=== PATIENT | male | born 1985 | race Caucasian/White ===

== ENCOUNTER 2017-09-23 01:26 | Inpatient (IN) | payer OTHER ==
--- NOTE | 2017-09-23 01:51 | ED ---
General Adult HPI - General Chief complaint: Psychiatric Symptoms Stated complaint: mental health Time Seen by Provider: 09/23/17 01:49 Source: patient, RN notes reviewed, old records reviewed Mode of arrival: ambulatory Limitations: no limitations - History of Present Illness Initial comments: This is a 32-year-old male to the ER for evaluation of suicidal thoughts. Patient states he has history of psychiatric illness but no prior evaluation. Denies drugs or current alcohol drinking. Patient states he does drink occasional. Patient states he has been having significant thoughts of suicide for time now. On and off. Patient states symptoms are increasing is very suicidal and depressed today - Related Data Home Medications Medication Instructions Recorded Confirmed No Known Home Medications [No 09/23/17 09/23/17 Known Home Medications] Allergies Allergy/AdvReac Type Severity Reaction Status Date / Time No Known Allergies Allergy Verified 09/23/17 01:40 Review of Systems ROS Statement: Those systems with pertinent positive or pertinent negative responses have been documented in the HPI. ROS Other: All systems not noted in ROS Statement are negative. Past Medical History Past Medical History: No Reported History History of Any Multi-Drug Resistant Organisms: None Reported Past Surgical History: No Surgical Hx Reported Past Psychological History: Depression Smoking Status: Current every day smoker Past Alcohol Use History: Daily Past Drug Use History: Marijuana General Exam Limitations: no limitations General appearance: alert, in no apparent distress Head exam: Present: atraumatic, normocephalic, normal inspection Eye exam: Present: normal appearance, PERRL, EOMI. Absent: scleral icterus, conjunctival injection, periorbital swelling ENT exam: Present: normal exam, mucous membranes moist Neck exam: Present: normal inspection. Absent: tenderness, meningismus, lymphadenopathy Respiratory exam: Present: normal lung sounds bilaterally. Absent: respiratory distress, wheezes, rales, rhonchi, stridor Cardiovascular Exam: Present: regular rate, normal rhythm, normal heart sounds. Absent: systolic murmur, diastolic murmur, rubs, gallop, clicks GI/Abdominal exam: Present: soft, normal bowel sounds. Absent: distended, tenderness, guarding, rebound, rigid Extremities exam: Present: normal inspection, full ROM, normal capillary refill. Absent: tenderness, pedal edema, joint swelling, calf tenderness Back exam: Present: normal inspection Neurological exam: Present: alert, oriented X3, CN II-XII intact Psychiatric exam: Present: normal affect, normal mood Skin exam: Present: warm, dry, intact, normal color. Absent: rash Course Vital Signs 09/23/17 01:34 Temperature 98.5 F Pulse Rate 71 Respiratory 18 Rate Blood Pressure 136/94 O2 Sat by Pulse 98 Oximetry - Reevaluation(s) Reevaluation #1: 09/23/17 01:51 Medical clear for psychiatric evaluation Medical Decision Making - Medical Decision Making 29 female the ER for evaluation. This patient presents for evaluation regards to psychiatric illness, patient to be admitted for psychiatric evaluation and treatment Disposition Clinical Impression: Depression, Suicidal ideation Disposition: TRANSFER TO PSYCH HOSP/UNIT Condition: Good Referrals: None,Stated [Primary Care Provider] - 1-2 days
[2017-09-23] MEDS ORDERED: MAG HYDROX/AL HYDROX/SIMETH 30 ML CUP PO PRN (04:46)
[2017-09-23] MEDS ORDERED: ACETAMINOPHEN TAB 325 MG TAB PO PRN (04:46)
[2017-09-23] MEDS ORDERED: MAGNESIUM HYDROXIDE 2,400 MG/10 ML CUP PO PRN (04:46)
[2017-09-23 05:17] LABS: Appearance,Urine Clear (Clear); Bilirubin,Urine Negative (Negative); Blood,Urine Negative (Negative); Color,Urine Yellow; Glucose,Urine (UA) Negative (Negative); Ketones,Urine Negative (Negative); Leukocyte Esterase,Urine Negative (Negative); Nitrite,Urine Negative (Negative); Protein,Urine Negative (Negative); Urobilinogen,Urine <2.0 mg/dL (<2.0)
[2017-09-23 05:57] VITALS: RESP 16
--- NOTE | 2017-09-23 06:27 | P.MDCNMH ---
History of Present Illness H&P Date: 09/23/17 Chief Complaint: Suicidal ideations 32-year-old male to the ER for evaluation of suicidal thoughts. He feels that he needed a psychiatrist evaluation that is ''long overdue''. Patient states he has history of depression and in the past used to have periods of elation with that but lately he only has been having worsening depression. He was not evaluated by a physician for this in the past. He denied having any hallucinations or delusions. No plans for suicide. No attempts to commit suicide. He has been smoking a lot of marijuana and drinking a lot of alcohol lately over the last month. He has been drinking about 3-4 beers a day and stated that he has not been feeling the alcohol. He has been having a lot of stress in his life from his relationship with a significant other. No recent illness, fevers chills, pain or shortness of breath. Review of Systems 12 point review of system was performed, negative except for HPI Past Medical History Past Medical History: No Reported History History of Any Multi-Drug Resistant Organisms: None Reported Past Surgical History: No Surgical Hx Reported Past Psychological History: Depression Smoking Status: Current every day smoker Past Alcohol Use History: Daily Past Drug Use History: Marijuana - Past Family History Mother Additional Family Medical History / Comment(s): Bipolar disorder runs in the family. Medications and Allergies Home Medications Medication Instructions Recorded Confirmed Type No Known Home Medications [No 09/23/17 09/23/17 History Known Home Medications] Allergies Allergy/AdvReac Type Severity Reaction Status Date / Time No Known Allergies Allergy Verified 09/23/17 01:40 Physical Exam Vitals: Vital Signs Temp Pulse Pulse Resp BP BP Pulse Ox 09/23/17 05:52 98.5 F 78 16 126/76 95 09/23/17 01:34 98.5 F 71 18 136/94 98 Intake and Output 09/22/17 09/22/17 09/23/17 14:59 22:59 06:59 Other: Weight 91.8 kg Patient Weight 09/23/17 06:59 Weight 91.8 kg Constitutional: No acute distress, conversant, pleasant Eyes:Anicteric sclerae, moist conjunctiva, no lid-lag, PERRLA, ENMT: Oropharynx clear, no erythema, exudates Neck: Supple, FROM, no masses, or JVD, No carotid bruits, No thyromegaly Lungs: Clear to auscultation, Clear to percussion, Normal respiratory effort, no accessory muscle use Cardiovascular: Heart regular in rate and rhythm, No murmurs, gallops, or rubs, No peripheral edema Abdominal: Soft, Nontender, no guarding, rebound or rigidity, Normoactive bowel sounds, No hepatomegaly, No splenomegaly, No palpable mass Skin: Normal temperature, tone, texture, turgor, no induration, No subcutaneous nodules, No rash, lesions, No ulcers Extremities: No digital cyanosis, No clubbing, Pedal pulses intact and symmetrical, Radial pulses intact and symmetrical, No calf tenderness Psychiatric: Alert and oriented to person, place and time, appropriate affect, intact judgement Neuro: Muscles Strength 5/5 in all 4 extremities, Sensation to light touch grossly present throughout, Cranial nerves II-XII grossly intact, no focal sensory deficits Cranial Nerve Examination - Cranial Nerves Cranial Nerve II- Optic: Intact Cranial Nerve III- Oculomotor: Intact Cranial Nerve IV- Trochlear: Intact Cranial Nerve V- Trigeminal: Intact Cranial Nerve - Abducens: Intact Cranial Nerve VII- Facial: Intact Cranial Nerve VIII- Auditory: Intact Cranial Nerve IX- Glossopharyngeal: Intact Cranial Nerve X- Vagus: Intact Cranial Nerve XI- Accessory: Intact Cranial Nerve XII- Hypoglossal: Intact Assessment and Plan Plan: #1 Depression with suicidal ideations: Management per psychiatry Check CBC, CMP, TSH, hemoglobin A1c #2. Polysubstance abuse including smoking cigarettes and marijuana, drinking: Advised to quit Offered nicotine patches or drugs to help with nicotine craving but he refused and stated that he can do it alone
[2017-09-23 07:08] LABS: Amphetamine Screen,Urine Not Detected (NotDetected); Barbiturate Screen,Urine Not Detected (NotDetected); Benzodiazepines Screen,Urine Not Detected (NotDetected); Cocaine Screen,Urine Detected (NotDetected); Methadone Screen, Urine Not Detected (NotDetected); Opiate Screen,Urine Not Detected (NotDetected); Oxycodone Screen, Urine Not Detected (NotDetected); Phencyclidine Screen,Urine Not Detected (NotDetected); Tricyclic Antidepressant,Urine Not Detected (NotDetected); Urn Cannabinoid Scrn Detected (NotDetected)
--- NOTE | 2017-09-23 09:52 | P.HP ---
Psychiatric H&P - . H&P Date: 09/23/17 History & Physical: Allergies Allergy/AdvReac Type Severity Reaction Status Date / Time No Known Allergies Allergy Verified 09/23/17 01:40 Vital Signs Temp 98.5 F 09/23/17 05:52 Pulse 78 09/23/17 05:52 Resp 16 09/23/17 05:52 BP 126/76 09/23/17 05:52 Pulse Ox 95 09/23/17 05:52 Intake & Output 09/22/17 09/23/17 09/23/17 18:59 06:59 18:59 Weight 91.8 kg Laboratory Last Values Urine Color Yellow 09/23/17 04:30 Urine Appearance Clear (Clear) 09/23/17 04:30 Urine pH 6.0 (5.0-8.0) 09/23/17 04:30 Ur Specific Merom 1.020 (1.001-1.035) 09/23/17 04:30 Urine Protein Negative (Negative) 09/23/17 04:30 Urine Glucose (UA) Negative (Negative) 09/23/17 04:30 Urine Ketones Negative (Negative) 09/23/17 04:30 Urine Blood Negative (Negative) 09/23/17 04:30 Urine Nitrite Negative (Negative) 09/23/17 04:30 Urine Bilirubin Negative (Negative) 09/23/17 04:30 Urine Urobilinogen <2.0 mg/dL (<2.0) 09/23/17 04:30 Ur Leukocyte Esterase Negative (Negative) 09/23/17 04:30 Urine Opiates Screen Not Detected (NotDetected) 09/23/17 04:30 Ur Oxycodone Screen Not Detected (NotDetected) 09/23/17 04:30 Urine Methadone Screen Not Detected (NotDetected) 09/23/17 04:30 Ur Propoxyphene Screen Not Detected (NotDetected) 09/23/17 04:30 Ur Barbiturates Screen Not Detected (NotDetected) 09/23/17 04:30 U Tricyclic Antidepress Not Detected (NotDetected) 09/23/17 04:30 Ur Phencyclidine Scrn Not Detected (NotDetected) 09/23/17 04:30 Ur Amphetamines Screen Not Detected (NotDetected) 09/23/17 04:30 U Methamphetamines Scrn Not Detected (NotDetected) 09/23/17 04:30 U Benzodiazepines Scrn Not Detected (NotDetected) 09/23/17 04:30 Urine Cocaine Screen Detected (NotDetected) H 09/23/17 04:30 U Marijuana (THC) Screen Detected (NotDetected) H 09/23/17 04:30 09/23/17 09:37 Identification: Júnior Carias is a 32 years old single white male living in [facility] he was admitted to [facility] on 2017 under a petition stating that he is depressed and suicidal. History of present illness: Patient said he has been depressed all his life and it comes and goes. This time is started about first of the year since he was laid off on 06/14/2017. He also said he has been having suicidal thoughts for the last 2 days since his girlfriend apparently kicked him out. He said he was leaving the house staying with somebody for some time and so his girlfriend got mad and kicked him out. Apparently they reconciled and they both agreed that he should come to the hospital for examination and treatment. He said his depression gets worse lasting from weeks to months. During his "depression" he sleeps a lot. He does not report other symptoms of depression. He said his mood changes and sometimes he feels happy and hyper lasting for hours which happens spontaneously. He denies hallucinations and delusional thinking. Previous psychiatric history/drug and alcohol abuse: He was never in a psychiatric hospital and does not have any psychiatric treatment. He said he has been drinking alcohol since he was a teenager he drinks every day up to about 3 beers. But there are times when he drinks more than 10 beers a day he had blackouts. He did not have any withdrawal symptoms, DUI or PI. He also has been smoking pot since he was a teenager. He said he smokes a joint a day. He insisted that he does not abuse any other drugs. When he was asked about his drug screening being positive for cocaine, he admitted that he has been smoking cocaine recently. Previous medical history: He is not ALLERGIC to any medication. He gets at least 1 or 2 episodes of headaches which he thinks could be migraine or tension headaches. He did not have any surgery. He denies any other physical problems. Social history: He had graduated from high school and got 10 credits in college. 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 He said he had some learning problems but he did not have to repeat any grades or classes. He did not like to follow the rules and got into trouble with his father because of this. His parents were when he was 12 years old. Then he stated either with his father or his mother. He was not abused. He has been living with his girlfriend for the last 15 years and has 3 children. As noted earlier he was laid off from [employer] on 06/14/2017 and he will be recalled next month. Apparently he gets laid off every winter and this is nothing new. He was not in the service. He is [employer] by [employer] and does not go to restorationist. He is heterosexual. He denies any pending legal issues. He does not have any health insurance. Family history: He thinks his father may have bipolar disorder. Mental status examination: This is a white ambulatory male with adequate hygiene. He is polite and cooperative. He does not show any psychomotor agitation or retardation. His speech is spontaneous relevant and goal- directed. His mood is dull and affect is somewhat constricted in range. He denies current suicidal and homicidal ideas. He denies hallucinations and delusional thinking. He is well oriented with good memory. He is able to recall 3 out of 3 items after 5 minutes and name the last 4 presidents correctly. He is able to spell house both forwards and backwards correctly. He is able to say 8+7 is 15 and 87 is 56 without any difficulty. His insight is fair and judgment is rather impaired as evidenced by his recent behavior of leaving the house, staying with somebody, abusing pot cocaine etc. 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 Treatment plan: He already had his physical examination. He will have psychosocial evaluation. He will receive milieu therapy group therapy individual therapy occupational therapy recreational therapy and medication education. Since he is not considered to be a suicide risk at this time he will not receive suicide supervision. His condition was discussed with him and it was agreed for him to try Depakote 1500 mg a day for possible mood stabilization and headache prevention. Adjust the dose as necessary. Discharge with outpatient follow-up. Treatment goals: He will continue to be free of suicide thoughts. He will learn better coping skills. His mood will be stable. Estimated length of stay: 3-5 days.
[2017-09-23] MEDS: DIVALPROEX ER 500 MG TAB.ER.24H PO SCH (10:36)
[2017-09-23 10:55] LABS: Basophils % (A) 1 %; Eosinophils # (A) 0.1 k/uL (0-0.7); Eosinophils % (A) 1 %; HCT 47.7 % (39.0-53.0); HGB 16.6 gm/dL (13.0-17.5); Lymphocytes % (A) 22 %; MCHC 34.7 g/dL (31.0-37.0); MCV 89.2 fL (80.0-100.0); Monocytes # (A) 0.5 k/uL (0-1.0); Monocytes % (A) 5 %; Neutrophils # (A) 6.5 k/uL (1.3-7.7); Neutrophils % (A) 70 %; Platelet Count 215 k/uL (150-450); RBC 5.35 m/uL (4.30-5.90); RDW 12.8 % (11.5-15.5); WBC 9.3 k/uL (3.8-10.6)
[2017-09-23 11:28] LABS: ALT 22 U/L (21-72); AST 15 U/L (17-59); Albumin 3.9 g/dL (3.5-5.0); Alkaline Phosphatase 58 U/L (38-126); Anion Gap 11 mmol/L; Blood Urea Nitrogen 13 mg/dL (9-20); Calcium 9.5 mg/dL (8.4-10.2); Carbon Dioxide 26 mmol/L (22-30); Chloride 107 mmol/L (98-107); Glucose 94 mg/dL (74-99); Potassium 4.3 mmol/L (3.5-5.1); Sodium 144 mmol/L (137-145); Total Bilirubin 0.2 mg/dL (0.2-1.3); Total Protein 6.9 g/dL (6.3-8.2)
[2017-09-24] MEDS: DIVALPROEX ER 500 MG TAB.ER.24H PO SCH (08:19)
--- NOTE | 2017-09-24 12:02 | P.PN ---
Progress Note - Text Progress Note Date: 09/24/17 Patient was seen for a follow-up examination. He is polite and cooperative. He said he took his Depakote yesterday and today and he thinks his mood is more stable and better since he went on Depakote. He said he went to his groups this morning. He was encouraged to go to the groups. Patient is polite and cooperative. His still looks a little dysphoric. He does not show any psychomotor agitation or retardation. His speech is rather short soft and goal-directed. His affect is fairly appropriate to thought content. He continues to deny suicidal, homicidal thoughts, hallucinations and delusional thinking. He is well oriented with adequate memory concentration etc. Plan: Continue Depakote, groups and other activities.
[2017-09-25 06:50] VITALS: BP 89/61; PULSE 72; TEMP 98.4
[2017-09-25] MEDS: DIVALPROEX ER 500 MG TAB.ER.24H PO SCH (08:17)
--- NOTE | 2017-09-25 10:54 | P.DS ---
Providers Date of admission: 09/23/17 04:26 Expected date of discharge: 09/25/17 Attending physician: Omar Donovan Consults: 09/23/17 04:46 Consult Physician Routine Consulting Provider: [facility] [employer] Consult Reason/Comments: H & P medical management Do you want consulting provider notified?: Yes, Notify in am Primary care physician: Stated None Hospital Course: Patient had his physical examination psychiatric evaluation and psychosocial evaluation. After psychiatric examination he was started on Depakote 1500 mg a day. He also receive milieu therapy group therapy individual therapy occupational therapy recreational therapy and medication education. He participated in his therapy sessions interacted with staff and peers and did not have any untoward incident. He did not have any adverse effects from medication. He did not have any headaches since he went on Depakote. His mood has been stable and continues to deny suicide thoughts. In view of all these it was agreed to discharge him. Condition on discharge: This is a white ambulatory male with good hygiene he is polite cheerful and cooperative. He does not show any psychomotor agitation or retardation. His speech is spontaneous relevant and goal-directed. His mood is euthymic and affect is appropriate. He continues to deny suicide and homicide thoughts. He also denies hallucinations and delusional thinking. His insight and judgment have improved. He is well oriented with good memory concentration general fund of knowledge etc. Diagnosis on discharge: Unspecified bipolar and related disorder F 31.9 Alcohol use disorder severe F 10.20 Cannabis use disorder moderate F 12.20 Cocaine use disorder mild F 14.10 NKDA Chronic migraine versus tension headaches. 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 He agreed with all these recommendations. Patient Condition at Discharge: Good Plan - Discharge Summary Discharge Rx Participant: Yes New Discharge Prescriptions: New Divalproex ER [Depakote ER] 1,500 mg PO DAILY 30 Days #30 tab.er.24h Discharge Medication List Divalproex ER [Depakote ER] 1,500 mg PO DAILY 30 Days #30 tab.er.24h 09/25/17 [ Rx] Follow up Appointment(s)/Referral(s): [facility] - [facility] - 10/01/17 10:30 am (10/01/17 at 1030 with Niurka Gibbs ) Patient Instructions/Handouts: Depression (GEN), Suicide Prevention for Adults (GEN) Activity/Diet/Wound Care/Special Instructions: Activity and diet as tolerated. Avoid the use of street drugs and alcohol. Take all medications as prescribed. When you are in need of refills on your medications please contact your medical provider and/or outpatient psychiatrist to have this done. Please go to scheduled outpatient appointment for aftercare treatment. If symptoms return or become worse call the crisis line at [phone] and/or go to the nearest emergency room for an evaluation. Depakote level, AST, AST, CBC with differential count on 09/27/2017 in an empty stomach. Discharge Disposition: HOME SELF-CARE
== END 2017-09-25 13:44 | disposition home or self-care (01) | DRG 885 ==
LOC: EC 01:26 → 3MHU 04:26
PROVIDERS: ADMIT Psychiatry & Neurology Psychiatry; ATTEND Psychiatry & Neurology Psychiatry
DX: F31.9 Bipolar disorder, unspecified (principal); R45.851 Suicidal ideations; F10.20 Alcohol dependence, uncomplicated; F12.20 Cannabis dependence, uncomplicated; F14.10 Cocaine abuse, uncomplicated; F43.25 Adjustment disorder with mixed disturbance of emotions and conduct; Z87.891 Personal history of nicotine dependence; Z71.41 Alcohol abuse counseling and surveillance of alcoholic; Z71.51 Drug abuse counseling and surveillance of drug abuser
CPT/HCPCS: 80053; 80306; 81003; 82075; 84443; 85025; 99285

== ENCOUNTER → 2017-09-27 | Outpatient (CLI) | payer SELFPAY ==
[2017-09-27 15:40] LABS: Basophils % (A) 1 %; Eosinophils # (A) 0.1 k/uL (0-0.7); Eosinophils % (A) 1 %; HCT 47.9 % (39.0-53.0); HGB 16.5 gm/dL (13.0-17.5); Lymphocytes # (A) 2.2 k/uL (1.0-4.8); Lymphocytes % (A) 24 %; MCHC 34.5 g/dL (31.0-37.0); Mean Platelet Volume 6.9; Monocytes # (A) 0.5 k/uL (0-1.0); Monocytes % (A) 5 %; Neutrophils # (A) 6.3 k/uL (1.3-7.7); Neutrophils % (A) 68 %; Platelet Count 239 k/uL (150-450); RBC 5.33 m/uL (4.30-5.90); RDW 12.8 % (11.5-15.5); WBC 9.2 k/uL (3.8-10.6)
== END | disposition home or self-care (01) ==
LOC: LABWHC1 15:23
PROVIDERS: ATTEND Psychiatry & Neurology Psychiatry
DX: F31.9 Bipolar disorder, unspecified (principal)
CPT/HCPCS: 36415; 80164; 84450; 84460; 85025

== ENCOUNTER 2019-04-26 21:41 | Emergency (ER) | payer MEDICAID, OTHER ==
[2019-04-26 22:06] VITALS: RESP 18
[2019-04-26] MEDS ORDERED: FAMOTIDINE 20 MG TAB PO STA (22:45)
[2019-04-26] MEDS ORDERED: predniSONE 50 MG TAB PO STA (22:45)
[2019-04-26] MEDS ORDERED: diphenhydrAMINE 50 MG CAP PO STA (22:45)
[2019-04-26] MEDS ORDERED: MAG HYDROX/AL HYDROX/SIMETH 30 ML, HYOSCYAMINE ELIXIR 10 ML, CIMETIDINE HCL 300 MG, LID... PO STA ×4 (23:16)
--- NOTE | 2019-04-26 23:18 | ED ---
General Adult HPI - General Chief complaint: Skin/Abscess/Foreign Body Stated complaint: Rash Time Seen by Provider: 04/26/19 22:02 Source: patient, RN notes reviewed, old records reviewed Mode of arrival: ambulatory Limitations: no limitations - History of Present Illness Initial comments: 34-year-old male patient presents to ED for chief complaint of rash on dorsal aspect of her wrists as well as bilateral inguinal region which has been going on for 1 day. Patient reports that it is pruritic. Patient denies any rashes any other areas. Patient also has secondary complaint of sensation of foreign body in distal esophagus region. Patient reports has been waxing and waning for weeks. Has been taking omeprazole for GERD which has been causing discomfort for years. Denies any other complaints. Systemic: Pt denies fatigue, fever/chills, . Pt denies weakness, night sweats, weight loss. Neuro: Pt denies headache, visual disturbances, syncope or pre-syncope. HEENT: Pt denies ocular discharge or irritation, otalgia, rhinorrhea, pharyngitis or notable lymphadenopathy. Cardiopulmonary: Pt denies chest pain, SOB, heart palpitations, dyspnea on exertion. Abdominal/GI: Pt denies abdominal pain, n/v/d. : Pt denies dysuria, burning w/ urination, frequency/urgency. Denies new onset urinary or bowel incontinence. MSK: Pt denies myalgia, loss of strength or function in extremities. Neuro: Pt denies new onset weakness, paresthesias. - Related Data Previous Rx's Medication Instructions Recorded Divalproex ER [Depakote ER] 1,500 mg PO DAILY 30 Days #30 09/25/17 tab.er.24h EPINEPHrine (Auto Inject) [Epipen] 0.3 mg IM ONCE PRN #2 pen 04/26/19 Famotidine [Pepcid] 20 mg PO ONCE #4 tablet 04/26/19 diphenhydrAMINE [Benadryl] 50 mg PO TID PRN #30 capsule 04/26/19 predniSONE 50 mg PO DAILY #4 tab 04/26/19 Allergies Allergy/AdvReac Type Severity Reaction Status Date / Time No Known Allergies Allergy Verified 04/26/19 21:46 Review of Systems ROS Statement: Those systems with pertinent positive or pertinent negative responses have been documented in the HPI. ROS Other: All systems not noted in ROS Statement are negative. Past Medical History Past Medical History: No Reported History History of Any Multi-Drug Resistant Organisms: None Reported Past Surgical History: No Surgical Hx Reported Past Psychological History: Depression Smoking Status: Current every day smoker Past Alcohol Use History: Daily Past Drug Use History: Marijuana - Past Family History Mother Additional Family Medical History / Comment(s): Bipolar disorder runs in the family. General Exam - General Exam Comments Initial Comments: Constitutional: NAD, AOX3, Pt has pleasant affect. HEENT: NC/AT, trachea midline, neck supple, no lymphadenopathy. Posterior pharynx non erythematous, without exudates. External ears appear normal, without discharge. Mucous membranes moist. Eyes PERRLA, EOM intact. There is no scleral icterus. No pallor noted. Cardiopulmonary: RRR, no murmurs, rubs or gallops, no JVD noted. Lungs CTAB in anterior and posterior dunbar. No peripheral edema. Abdominal exam: Abdomen soft and non-distended. Abdomen non-tender to palpation in all 4 quadrants. Bowel sounds active in LLQ. No hepatosplenomegaly. No ecchymosis Neuro: CN II-XII grossly intact. No nuchal rigidity. No raccon eyes, no hopkins sign, no hemotympanum. No cervical spinal tenderness. MSK: No posterior calf tenderness bilaterally, homans sign negative bilaterally. Posterior tibialis and radial pulse +2 bilaterally. Sensation intact in upper and lower extremities. Full active ROM in upper and lower extremities, 5/5 stregnth. Derm: Hives noted on dorsal aspect of wrist, bilateral inguinal region bilaterally. No other areas of rash. Spares palms and soles. No mucosal involvement. Limitations: no limitations Course Vital Signs 04/26/19 04/26/19 04/26/19 21:43 22:02 23:28 Temperature 98.6 F 98.7 F Pulse Rate 86 73 Respiratory 20 18 18 Rate Blood Pressure 146/97 143/102 O2 Sat by Pulse 96 96 Oximetry Medical Decision Making - Medical Decision Making 34-year-old male patient presents to ED for chief complaint of rash on dorsal aspect of her wrists as well as bilateral inguinal region which has been going on for 1 day. Patient reports that it is pruritic. Patient denies any rashes any other areas. Patient also has secondary complaint of sensation of foreign body in distal esophagus region. Patient reports has been waxing and waning for weeks. Has been taking omeprazole for GERD which has been causing discomfort for years. Denies any other complaints. Physical exam displayed: Hives noted on dorsal aspect of wrist, bilateral inguinal region bilaterally. No other areas of rash. Spares palms and soles. Patient likely has contact dermatitis. Patient administered steroids, Pepcid, Benadryl. Patient's second complaint is suggestive of esophagitis. Patient will follow-up with primary care provider. Pt was also provided GI follow-up which was provided to patient via follow up nurse. Case discussed with Dr. Fong. Disposition Clinical Impression: Allergic reaction Disposition: HOME SELF-CARE Condition: Stable Instructions (If sedation given, give patient instructions): General Allergic Reaction (ED) Additional Instructions: Patient to adhere to previously discussed treatment plan and will take medication(s) as directed. Patient to follow up with PCP in 1-2 days. Patient to return to ED if symptoms do not improve. Take medication as directed. Follow up with primary care provider tomorrow. Return to ER if condition worsens. Prescriptions: diphenhydrAMINE [Benadryl] 50 mg PO TID PRN #30 capsule PRN Reason: rash EPINEPHrine (Auto Inject) [Epipen] 0.3 mg IM ONCE PRN #2 pen PRN Reason: Anaphylaxis Famotidine [Pepcid] 20 mg PO ONCE #4 tablet predniSONE 50 mg PO DAILY #4 tab Is patient prescribed a controlled substance at d/c from ED?: No Referrals: None,Stated [Primary Care Provider] - 1-2 days
[2019-04-26 23:29] VITALS: BP 143/102; PULSE 73; TEMP 98.7
== END 2019-04-26 23:28 | disposition home or self-care (01) ==
LOC: SUPCPDRO 21:41 → EC 21:41
DX: T78.40XA Allergy, unspecified, initial encounter (principal); K21.9 Gastro-esophageal reflux disease without esophagitis; F17.200 Nicotine dependence, unspecified, uncomplicated; Z79.899 Other long term (current) drug therapy
CPT/HCPCS: 99283; J7512

== ENCOUNTER 2019-04-30 08:16 | Emergency (ER) | payer OTHER ==
[2019-04-30 08:26] VITALS: BP 133/84; PULSE 113; RESP 18; TEMP 98.1
[2019-04-30] MEDS ORDERED: predniSONE 50 MG TAB PO STA (09:33)
--- NOTE | 2019-04-30 09:40 | ED ---
Skin/Abscess/FB HPI - General Chief complaint: Skin/Abscess/Foreign Body Stated complaint: Recheck Rash Time Seen by Provider: 04/30/19 08:50 Source: patient, RN notes reviewed, old records reviewed Mode of arrival: ambulatory Limitations: no limitations - History of Present Illness Initial comments: This is a 34-year-old male coming presents today for evaluation for recheck for rash. Patient reports he's had periodic like hives over his arms, back and neck and leg for the past week. He was seen in emergency department started on prednisone and Benadryl. He reports that she's finished the steroids, took a dose of Benadryl today as the hives recurred and now they've diminished again. 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 Denies any new exposures. Denies any fever chills chest pain shortness of breath. - Related Data Previous Rx's Medication Instructions Recorded Divalproex ER [Depakote ER] 1,500 mg PO DAILY 30 Days #30 09/25/17 tab.er.24h EPINEPHrine (Auto Inject) [Epipen] 0.3 mg IM ONCE PRN #2 pen 04/26/19 Famotidine [Pepcid] 20 mg PO ONCE #4 tablet 04/26/19 diphenhydrAMINE [Benadryl] 50 mg PO TID PRN #30 capsule 04/26/19 predniSONE 50 mg PO DAILY #4 tab 04/26/19 Famotidine [Pepcid] 20 mg PO BID #20 tablet 04/30/19 predniSONE 50 mg PO DAILY #5 tab 04/30/19 Allergies Allergy/AdvReac Type Severity Reaction Status Date / Time No Known Allergies Allergy Verified 04/30/19 08:26 Review of Systems ROS Statement: Those systems with pertinent positive or pertinent negative responses have been documented in the HPI. ROS Other: All systems not noted in ROS Statement are negative. Past Medical History Past Medical History: No Reported History History of Any Multi-Drug Resistant Organisms: None Reported Past Surgical History: No Surgical Hx Reported Past Psychological History: Depression Smoking Status: Former smoker Past Alcohol Use History: Occasional Past Drug Use History: None Reported, Marijuana - Past Family History Mother Additional Family Medical History / Comment(s): Bipolar disorder runs in the family. General Exam Limitations: no limitations General appearance: alert, in no apparent distress Head exam: Present: atraumatic, normocephalic, normal inspection Eye exam: Present: normal appearance, PERRL, EOMI. Absent: scleral icterus, conjunctival injection, periorbital swelling ENT exam: Present: normal exam, mucous membranes moist Neck exam: Present: normal inspection. Absent: tenderness, meningismus, lymphadenopathy Respiratory exam: Present: normal lung sounds bilaterally Cardiovascular Exam: Present: regular rate GI/Abdominal exam: Present: soft, normal bowel sounds. Absent: distended, tenderness, guarding, rebound, rigid Extremities exam: Present: normal inspection, full ROM, normal capillary refill, other (Patient has evidence of hives over her forearms, hands back and axilla.). Absent: tenderness, pedal edema, joint swelling, calf tenderness Back exam: Present: normal inspection Neurological exam: Present: alert, oriented X3, CN II-XII intact Psychiatric exam: Present: normal affect, normal mood Course Vital Signs 04/30/19 08:22 Temperature 98.1 F Pulse Rate 113 H Respiratory 18 Rate Blood Pressure 133/84 O2 Sat by Pulse 98 Oximetry Medical Decision Making - Medical Decision Making This is a 34-year-old male presents today for reevaluation for further click rash. Patient has evidence of hives over his neck, arm and back and axilla. No new exposures. No Nikolsky sign. No purpura noted. He is finishes steroids. I discussed the Patient is follow up with [facility] or [facility]. Will increase the steroid dose for the next few days as well and continue to dose Benadryl. Patient is agreeable to this treatment plan will comply. Return parameters were discussed. Disposition Clinical Impression: Localized hives Disposition: HOME SELF-CARE Condition: Good Instructions (If sedation given, give patient instructions): Urticaria (ED) Additional Instructions: Please use medication as discussed. Please follow up with family doctor if symptoms have not improved over the next two days. Please return to the emergency room if your symptoms increase or worsen or for any other concerns. Prescriptions: Famotidine [Pepcid] 20 mg PO BID #20 tablet predniSONE 50 mg PO DAILY #5 tab Is patient prescribed a controlled substance at d/c from ED?: No Referrals: None,Stated [Primary Care Provider] - 1-2 days Geo Charles, [Doctor of Osteopathic Medicine] - 1-2 days Rome Coreas MD [STAFF PHYSICIAN] - 1-2 days Larisa Jenkins MD [REFERRING] - 1-2 days Time of Disposition: 09:37
== END 2019-04-30 09:58 | disposition home or self-care (01) ==
LOC: EC 08:16
DX: L50.9 Urticaria, unspecified (principal); Z87.891 Personal history of nicotine dependence
CPT/HCPCS: 99283; J7512

== ENCOUNTER → 2020-06-08 | Outpatient (CLI) | payer BC ==
--- NOTE | 2020-06-08 11:13 | FL ---
EXAMINATION TYPE: FL barium swallow DATE OF EXAM: 06/08/2020 CLINICAL HISTORY: Dysphagia. Worsening symptoms of difficulty swallowing over last year per patient. TECHNIQUE: A double contrast esophagram is performed utilizing air and barium. A total of 21 second s of fluoroscopic time was utilized during procedure and 63 images obtained. COMPARISON: None FINDINGS: Capture Manager image is unremarkable. The esophagus shows normal motility and emptying into the stom ach. No diverticulum. No evidence of fixed hiatal hernia or stricture noted. Nose suspicious intral uminal mass. No significant gastroesophageal reflux was seen during real time performance of this jose dy. IMPRESSION: No significant abnormality is seen to account for patient's symptoms.
== END | disposition home or self-care (01) ==
LOC: RADUSWWP 10:11
PROVIDERS: ATTEND Otolaryngology
DX: R13.10 Dysphagia, unspecified (principal)
CPT/HCPCS: 74220